=== PATIENT | male | born 1950 | race Caucasian/White ===

== ENCOUNTER 2016-10-26 22:02 | Emergency (ER) | payer OTHER, MEDICARE | END 2016-10-27 01:10 | disposition home or self-care (01) | LOC: ER 22:02 | DX: R07.89 Other chest pain (principal); R05 Cough; R06.00 Dyspnea, unspecified; J44.9 Chronic obstructive pulmonary disease, unspecified; F17.210 Nicotine dependence, cigarettes, uncomplicated; Z88.0 Allergy status to penicillin ==